=== PATIENT | male | born 1985 | race Caucasian/White ===

== ENCOUNTER 2018-08-09 14:28 | Emergency (ER) | payer OTHER ==
[~2018-08-09] VITALS: Ht 182.9 cm; Wt 68.2 kg
[2018-08-09 14:29] VITALS: Ht 182.9 cm; Wt 68.2 kg
[2018-08-09] MEDS ORDERED: SOD CHLORIDE 0.9% 1,000 ML IV STA (15:21)
[2018-08-09] MEDS ORDERED: LORAZEPAM 2 MG INJ IV ONE ×2 (15:30→17:30)
--- NOTE | 2018-08-09 17:15 | ERD ---
ER Documentation Chief Complaint Chief Complaint REPORTS LAST VODKA 7 DAYS AGO WITH HALLUCINATIONS, HX OF DT'S HPI This is a 33-year-old male who is alcoholic who is here for hallucinations. The patient's last drink was about 5 days ago. He states that he has been through alcohol withdrawal many times has been in rehab 8 times. The patient states that this is a typical presentation for him at this stage in the game. He says that he is having some visual hallucinations of spiders and dragons and monsters. He says he has a little bit of the shakes no seizure, no nausea vomiting or abdominal pain. He is here because he wants some fluids and Ativan which usually works and stops the hallucinations. The patient does already have resources for rehab if needed. ROS All systems reviewed and are negative except as per history of present illness. Medications Home Meds No Active Prescriptions or Reported Meds Allergies Allergies: Coded Allergies: Penicillins (Verified Allergy, Unknown, 08/09/18) PMhx/Soc Hx Alcohol Use: Yes Hx Substance Use: Yes Hx Tobacco Use: No Smoking Status: Never smoker FmHx Family History: No coronary disease Physical Exam Vitals Vital Signs Date Temp Pulse Resp B/P (MAP) Pulse Ox O2 O2 Flow FiO2 Time Delivery Rate 08/09/18 101 21 162/89 99 Room Air 16:00 (113) 08/09/18 98.5 120 24 158/84 97 14:29 (108) Physical Exam Const: Well-developed, well-nourished Head: Atraumatic, normocephalic Eyes: Normal Conjunctiva, PERRLA, EOMI, normal sclera, no nystagmus ENT: Normal External Ears, Nose and Mouth, moist mucus membranes. Neck: Full range of motion. No meningismus, no lymphadenopathy. Resp: Clear to auscultation bilaterally, no wheezing, rhonchi, rales Cardio: Regular rate and rhythm, no murmurs, S1 S2 present Abd: Soft, non tender x 4, non distended. Normal bowel sounds, no guarding or rebound, no pulsitile abdominal masses or bruits Skin: No petechiae or rashes, no ecchymosis , no maculopapular rash Back: No midline or flank tenderness Ext: No cyanosis, or edema, FROM x 4, normal inspection, neurovascularly intact x 4 Neur: Awake and alert, STR 5/5 x 4, sensation intact x 4, no focal findings, cerebellum intact slight shakiness to the hands Psych: Normal Mood and Affect Result Diagram: 08/09/18 1537 08/09/18 1537 Results 24 hrs Laboratory Tests Test 08/09/18 15:37 White Blood Count 6.1 10^3/ul Red Blood Count 4.10 10^6/ul Hemoglobin 13.3 g/dl Hematocrit 38.6 % Mean Corpuscular Volume 94.1 fl Mean Corpuscular Hemoglobin 32.4 pg Mean Corpuscular Hemoglobin Concent 34.5 g/dl Red Cell Distribution Width 12.5 % Platelet Count 166 10^3/UL Mean Platelet Volume 10.0 fl Immature Granulocytes % 0.300 % Neutrophils % % Segmented Neutrophils % (Manual) 79 % Band Neutrophils % (Manual) 1 % Lymphocytes % % Lymphocytes % (Manual) 6 % Reactive Lymphocytes % (Manual) 1 % Monocytes % % Monocytes % (Manual) 12 % Eosinophils % % Basophils % % Basophils % (Manual) 1 % Nucleated Red Blood Cells % 0.0 /100WBC Immature Granulocytes # 0.020 10^3/ul Neutrophils # 10^3/ul Neutrophils # (Manual) 4.8 10^3/ul Band Neutrophils # 0.0 10^3/ul Lymphocytes (Manual) 0.3 10^3/ul Lymphocytes # 10^3/ul Reactive Lymphocytes # 0.0 10^3/ul Monocytes # 10^3/ul Monocytes # (Manual) 0.7 10^3/ul Eosinophils # 10^3/ul Basophils # 10^3/ul Basophils # (Manual) 0.0 10^3/ul Nucleated Red Blood Cells # 10^3/ul Platelet Estimate NORMAL Giant Platelets 5 % Poikilocytosis 1+ Sodium Level 138 mmol/L Potassium Level 3.5 mmol/L Chloride Level 97 mmol/L Carbon Dioxide Level 24 mmol/L Anion Gap 17 Blood Urea Nitrogen 14 mg/dl Creatinine 1.19 mg/dl Est Glomerular Filtrat Rate mL/min > 60 mL/min Glucose Level 88 mg/dl Calcium Level 10.6 mg/dl Total Bilirubin 0.9 mg/dl Direct Bilirubin 0.00 mg/dl Indirect Bilirubin 0.9 mg/dl Aspartate Amino Transf (AST/SGOT) 378 IU/L Alanine Aminotransferase (ALT/SGPT) 511 IU/L Alkaline Phosphatase 53 IU/L Total Protein 8.7 g/dl Albumin 5.5 g/dl Globulin 3.20 g/dl Albumin/Globulin Ratio 1.71 Current Medications Medications Dose Sig/Love Start Time Status Last (Trade) Ordered Route PRN Stop Time Admin Dose Reason Admin Sodium 1,000 ml @ Q1H STAT 08/09/18 DC 08/09/18 Chloride 1,000 mls/hr IV 15:21 08/09/18 15:42 16:20 Lorazepam 1 mg ONCE ONCE 08/09/18 DC 08/09/18 (Ativan) IV 15:30 08/09/18 15:42 15:31 Lorazepam 1 mg ONCE ONCE 08/09/18 (Ativan) IV 17:30 08/09/18 17:31 Nicardipine 30 mg ONCE ONCE 08/09/18 HCl PO 17:30 08/09/18 (Cardene) 17:31 Procedures/MDM Patient's blood work is relatively stable. I will give him some IV fluids and Ativan. After 1 mg he feels better but said he could use some more. Will administer another milligram of Ativan and some Cardene to lower his blood pressure. Heart rate is currently 102. Once he feels better will discharge home with Ativan p.o. and follow-up with his alcohol rehab center Departure Diagnosis: Primary Impression: Hallucinations Condition: Stable JOSELYN MCNAMARA DO Aug 09, 2018 17:15
[2018-08-09] MEDS ORDERED: LORA1TAB PO (17:16)
[2018-08-09] MEDS ORDERED: NICARDipine HCL 30 MG CAPSULE PO ONE (17:30)
[2018-08-09 17:48] VITALS: BP 144/101; PULSE 109; RESP 20
== END 2018-08-09 17:58 | disposition home or self-care (01) ==
LOC: E/R 14:28
DX: R44.1 Visual hallucinations (principal); R40.2142 Coma scale, eyes open, spontaneous, at arrival to emergency department; R40.2362 Coma scale, best motor response, obeys commands, at arrival to emergency department; R40.2252 Coma scale, best verbal response, oriented, at arrival to emergency department
CPT/HCPCS: 36415; 80053; 85025; 96374; 96376; J2060; J7030; Z7502; Z7610